=== PATIENT | male | born 1955 | race Caucasian/White ===

== ENCOUNTER 2018-03-21 11:13 | Inpatient (IN) | payer SELFPAY ==
[~2018-03-21] VITALS: Ht 170.2 cm; Wt 113.9 kg
[2018-03-21] MEDS ORDERED: KETOROLAC 30MG/ML VIAL IV STA (11:33)
[2018-03-21] MEDS ORDERED: ONDANSETRON HCL 4MG/2ML INJ IV STA (11:33)
[2018-03-21] MEDS ORDERED: ASPIRIN 81MG TABLET PO ONE (11:45)
[2018-03-21 12:42] LABS: HEMATOCRIT. 35.4 % (42.0-52.0); HEMOGLOBIN. 11.9 g/dL (14.0-18.0); MEAN CORPUSCULAR HEMOGLOBIN 29.2 pg (28.0-32.0); MEAN CORPUSCULAR VOLUME 86.9 fL (80.0-94.0); MEAN PLATELET VOLUME 8.8 fl (7.4-10.4); PLATELET 239 x1000/uL (130-400); RED BLOOD CELL COUNT 4.08 mill/uL (4.7-6.1); RED CELL DISTRIBUTION WIDTH 14.7 % (11.6-14.6)
[2018-03-21 12:46] LABS: CHLORIDE 98 mEq/L (98-107)
[2018-03-21] MEDS ORDERED: CEFTRIAXONE 1 G PREMIX 50 ML IV ONE (13:00)
[2018-03-21] MEDS ORDERED: SODIUM CHLORIDE 0.9% 1000ML BAG (SEPSIS BOLUS) IV ONE (13:00)
[2018-03-21 13:29] LABS: PLATELET ESTIMATE NORMAL
[2018-03-21] MEDS ORDERED: DOCUSATE SODIUM 100MG CAPSULE PO PRN (15:15)
[2018-03-21] MEDS ORDERED: DEXTROSE 50% WATER 50ML SYRINGE IV PRN (15:15)
[2018-03-21] MEDS ORDERED: GUAIFENESIN 200MG/10ML SUGAR FREE UDC PO PRN (15:15)
[2018-03-21] MEDS ORDERED: ACETAMINOPHEN 325MG TABLET PO PRN (15:15)
[2018-03-21] MEDS ORDERED: MAGNESIUM/ALUMINUM HYDROXIDE/SIMETHICONE 30ML UDC PO PRN (15:15)
[2018-03-21] MEDS ORDERED: ONDANSETRON HCL 4MG/2ML INJ IV PRN (15:15)
[2018-03-21] MEDS ORDERED: CLONIDINE 0.1MG TABLET PO PRN (15:15)
[2018-03-21] MEDS ORDERED: POTASSIUM CHLORIDE 20MEQ TABLET SR PO NR (15:15)
[2018-03-21] MEDS ORDERED: NITROGLYCERIN 0.4MG TABLET SL SL PRN (15:15)
[2018-03-21] MEDS ORDERED: IPRATROPIUM/ALBUTEROL 0.5-3(2.5)MG/3ML NEB INH PRN (15:15)
[2018-03-21] MEDS ORDERED: KETOROLAC 15MG/ML VIAL IV PRN (16:22)
[2018-03-21 19:30] VITALS: BP 120/88
[2018-03-21 19:57] LABS: TOTAL IRON BINDING CAPACITY 391 ug/dL (250-450)
[2018-03-21 20:00] VITALS: BP 117/77
[2018-03-21] MEDS: INSULIN LISPRO 100 UNITS/ML SUBCUT SCH ×2 (20:00→20:29)
[2018-03-21] MEDS: ENOXAPARIN 30MG/0.3ML SYR SUBCUT SCH (20:02)
[2018-03-21] MEDS: FUROSEMIDE 40MG/4ML VIAL IVP SCH (20:02)
[2018-03-21] MEDS: ASCORBIC ACID 500 MG TABLET PO SCH (20:03)
[2018-03-21] MEDS: BLOOD SUGAR DIAGNOSTIC STRIP TEST SCH ×2 (20:03→20:28)
[2018-03-21 20:14] LABS: FOLIC ACID (FOLATE) SERUM 10.5 ng/mL (>5.38)
[2018-03-21] MEDS: METOPROLOL TARTRATE 25MG TABLET PO SCH (20:27)
[2018-03-21] MEDS: FAMOTIDINE 20MG TABLET PO SCH (20:30)
[2018-03-21] MEDS: SPIRONOLACTONE 25MG TABLET PO SCH (20:31)
[2018-03-21] MEDS ORDERED: NA PHOS,M-B/NA PHOS,DI-BA ENEMA 118ML PR PRN (21:00)
[2018-03-21] MEDS ORDERED: AZITHROMYCIN 500 MG in DEXT 5% WATER 250 ML IV SCH (21:00)
[2018-03-21] MEDS ORDERED: ZOLPIDEM TARTRATE 5MG TABLET PO PRN (21:00)
[2018-03-21 23:27] LABS: CREATINE KINASE MB FRACTION 1.7 ng/mL (0.5-3.6)
[2018-03-22] VITALS (7 sets, daily range): BP systolic 103–130; BP diastolic 68–87
[2018-03-22] MEDS: BLOOD SUGAR DIAGNOSTIC STRIP TEST SCH ×4 (05:56→20:57)
[2018-03-22] MEDS: FUROSEMIDE 40MG/4ML VIAL IVP SCH ×3 (05:56→17:48)
[2018-03-22] MEDS: INSULIN LISPRO 100 UNITS/ML SUBCUT SCH ×4 (05:56→20:57)
[2018-03-22 08:40] LABS: CREATINE KINASE MB FRACTION 2.3 ng/mL (0.5-3.6)
[2018-03-22] MEDS ORDERED: CEFTRIAXONE 1 G PREMIX 50 ML IV SCH (09:00)
[2018-03-22] MEDS: ENOXAPARIN 30MG/0.3ML SYR SUBCUT SCH (09:11)
[2018-03-22] MEDS: METOPROLOL TARTRATE 25MG TABLET PO SCH ×2 (09:11→20:57)
[2018-03-22] MEDS: ASPIRIN 325MG EC TABLET PO SCH (09:12)
[2018-03-22] MEDS: FAMOTIDINE 20MG TABLET PO SCH ×2 (09:12→20:08)
[2018-03-22] MEDS: SPIRONOLACTONE 25MG TABLET PO SCH ×2 (09:12→20:08)
[2018-03-22] MEDS: ASCORBIC ACID 500 MG TABLET PO SCH ×2 (09:12→20:08)
[2018-03-22] MEDS: AZITHROMYCIN 500 MG in DEXT 5% WATER 250 ML IV SCH (20:25)
[2018-03-22] MEDS: ENOXAPARIN 120MG/0.8ML SYR SUBCUT SCH (21:03)
[2018-03-23 00:01] VITALS: BP 102/73
[2018-03-23 03:47] VITALS: BP 105/69
[2018-03-23 06:06] LABS: INR 1.1; PROTHROMBIN TIME 10.8 sec (9.1-11.1)
[2018-03-23] MEDS: BLOOD SUGAR DIAGNOSTIC STRIP TEST SCH ×4 (06:12→21:09)
[2018-03-23] MEDS: INSULIN LISPRO 100 UNITS/ML SUBCUT SCH ×4 (06:12→21:07)
[2018-03-23] MEDS: FUROSEMIDE 40MG/4ML VIAL IVP SCH ×2 (06:14→18:30)
[2018-03-23 08:00] VITALS: BP 122/72
[2018-03-23] MEDS: FAMOTIDINE 20MG TABLET PO SCH ×2 (09:37→21:08)
[2018-03-23] MEDS: ASCORBIC ACID 500 MG TABLET PO SCH ×2 (09:37→21:08)
[2018-03-23] MEDS: METOPROLOL TARTRATE 25MG TABLET PO SCH ×2 (09:38→21:08)
[2018-03-23] MEDS: ASPIRIN 325MG EC TABLET PO SCH (09:38)
[2018-03-23] MEDS: SPIRONOLACTONE 25MG TABLET PO SCH ×2 (09:38→21:08)
[2018-03-23] MEDS: ENOXAPARIN 120MG/0.8ML SYR SUBCUT SCH ×3 (09:39→21:08)
[2018-03-23] MEDS ORDERED: REGADENOSON 0.4 MG/5 ML IV ONE (10:45)
[2018-03-23 12:19] VITALS: BP 111/78
[2018-03-23 12:56] LABS: CREATINE KINASE MB FRACTION 1.4 ng/mL (0.5-3.6)
[2018-03-23 16:25] VITALS: BP 111/69
[2018-03-23 20:00] VITALS: BP 111/66
[2018-03-23] MEDS: AZITHROMYCIN 500 MG in DEXT 5% WATER 250 ML IV SCH (22:38)
[2018-03-24] VITALS: BP 102/71
[2018-03-24 04:00] VITALS: BP 115/73
[2018-03-24] MEDS: FUROSEMIDE 40MG/4ML VIAL IVP SCH (05:53)
[2018-03-24] MEDS: BLOOD SUGAR DIAGNOSTIC STRIP TEST SCH ×2 (06:00→12:33)
[2018-03-24] MEDS: INSULIN LISPRO 100 UNITS/ML SUBCUT SCH (06:01)
[2018-03-24 06:54] LABS: BASOPHILS % 0.7 % (0.0-2.0); EOSINOPHILS % 4.8 % (0.0-5.0); HEMATOCRIT. 38.1 % (42.0-52.0); HEMOGLOBIN. 12.6 g/dL (14.0-18.0); LYMPHOCYTES % 31.2 % (20.0-50.0); MEAN CORPUSCULAR VOLUME 87.7 fL (80.0-94.0); MEAN PLATELET VOLUME 8.5 fl (7.4-10.4); MONOCYTES % 9.9 % (2.0-8.0); NEUTROPHILS % 53.4 % (40.0-76.0); PLATELET 284 x1000/uL (130-400); RED BLOOD CELL COUNT 4.34 mill/uL (4.7-6.1); RED CELL DISTRIBUTION WIDTH 14.6 % (11.6-14.6)
[2018-03-24 07:19] LABS: CHLORIDE 101 mEq/L (98-107)
[2018-03-24 08:00] VITALS: BP 115/81
[2018-03-24] MEDS: FAMOTIDINE 20MG TABLET PO SCH (09:00)
[2018-03-24] MEDS: METOPROLOL TARTRATE 25MG TABLET PO SCH (09:00)
[2018-03-24] MEDS: SPIRONOLACTONE 25MG TABLET PO SCH (09:00)
[2018-03-24] MEDS: ASCORBIC ACID 500 MG TABLET PO SCH (09:00)
[2018-03-24] MEDS: ASPIRIN 325MG EC TABLET PO SCH (09:00)
[2018-03-24] MEDS: ENOXAPARIN 120MG/0.8ML SYR SUBCUT SCH (10:15)
[2018-03-24] MEDS: CEFTRIAXONE 1 G PREMIX 50 ML IV SCH (10:16)
[2018-03-24] MEDS ORDERED: REGADENOSON 0.4 MG/5 ML IV ONE (11:54)
[2018-03-24 12:00] VITALS: BP 130/87
[2018-03-24 16:00] VITALS: BP 129/88
[2018-03-25] MEDS ORDERED: AZITHROMYCIN 500 MG TABLET PO SCH (20:00)
== END 2018-03-24 16:15 | disposition home or self-care (01) | DRG 720 ==
LOC: ER 11:13 → EDBD 15:16 → 8WST 15:16 → EDBEDREQ 15:19 → ENRESERV 17:40
PROVIDERS: ADMIT Internal Medicine; ATTEND Internal Medicine
DX: A41.9 Sepsis, unspecified organism (principal); I21.4 Non-ST elevation (NSTEMI) myocardial infarction; I42.9 Cardiomyopathy, unspecified; I11.0 Hypertensive heart disease with heart failure; J18.9 Pneumonia, unspecified organism; I50.40 Unspecified combined systolic (congestive) and diastolic (congestive) heart failure; E44.1 Mild protein-calorie malnutrition; E83.51 Hypocalcemia; E11.9 Type 2 diabetes mellitus without complications; E87.1 Hypo-osmolality and hyponatremia; E87.6 Hypokalemia; D63.8 Anemia in other chronic diseases classified elsewhere; I25.10 Atherosclerotic heart disease of native coronary artery without angina pectoris; I25.2 Old myocardial infarction; Z79.4 Long term (current) use of insulin; Z87.891 Personal history of nicotine dependence; Z68.39 Body mass index [BMI] 39.0-39.9, adult
CPT/HCPCS: 36415; 71045; 78452; 80048; 80061; 82550; 82553; 82607; 82746; 82962; 83036; 83540; 83550; 83605; 83880; 84484; 87804; 93005; 93017; 93306; 93970; 96374; 96375; 99285; A9500; C1893; J0456; J0696; J1650; J1815; J1885; J1940; J2405; J2785; J7050; J7060

== ENCOUNTER 2019-11-23 18:22 | Inpatient (IN) | payer MEDICAID ==
[~2019-11-23] VITALS: Ht 170.2 cm; Wt 104.0 kg
[2019-11-23] MEDS ORDERED: ASPIRIN 81MG TABLET PO ONE (19:00)
[2019-11-23] MEDS ORDERED: NITROGLYCERIN 0.4MG TABLET SL SL PRN (19:00)
[2019-11-23 20:02] LABS: BASOPHILS % 1.2 % (0.0-2.0); HEMATOCRIT. 30.4 % (42.0-52.0); HEMOGLOBIN. 9.6 g/dL (14.0-18.0); LYMPHOCYTES % 25.5 % (20.0-50.0); MEAN CORPUSCULAR HEMOGLOBIN 23.4 pg (28.0-32.0); MEAN CORPUSCULAR VOLUME 73.7 fL (80.0-94.0); MEAN PLATELET VOLUME 6.9 fl (7.4-10.4); MONOCYTES % 10.4 % (2.0-8.0); NEUTROPHILS % 61.9 % (40.0-76.0); PLATELET 360 x1000/uL (130-400); RED BLOOD CELL COUNT 4.12 mill/uL (4.7-6.1); RED CELL DISTRIBUTION WIDTH 18.6 % (11.6-14.6)
[2019-11-23 20:12] LABS: CHLORIDE 105 mEq/L (98-107)
[2019-11-23 20:16] LABS: ETHANOL BLOOD 173 mg/dL
[2019-11-23 20:55] LABS: *AMPHETAMINES SCREEN URINE NEGATIVE (NEGATIVE); *BARBITURATES SCREEN URINE NEGATIVE (NEGATIVE); *COCAINE SCREEN URINE NEGATIVE (NEGATIVE); CANNABINOID URINE SCREEN NEGATIVE (NEGATIVE); PHENCYCLIDINE URINE SCREEN NEGATIVE (NEGATIVE)
[2019-11-23 20:56] LABS: *BENZODIAZEPINES SCREEN URINE PRESUMTIVE POSITIVE (NEGATIVE); METHADONE URINE SCREEN NEGATIVE (NEGATIVE); OPIATES URINE SCREEN NEGATIVE (NEGATIVE)
[2019-11-23] MEDS ORDERED: CHLORDIAZEPOXIDE 25MG CAPSULE PO ONE (22:00)
[2019-11-24] VITALS (13 sets, daily range): BP systolic 113–182; BP diastolic 47–112
[2019-11-24] MEDS ORDERED: ATOR10TA69 MT (02:04)
[2019-11-24] MEDS ORDERED: CARV6.2548 MT (02:04)
[2019-11-24] MEDS ORDERED: LISI2.5T47 MT (02:04)
[2019-11-24] MEDS ORDERED: ASPI-1497 MT (02:04)
[2019-11-24] MEDS ORDERED: LORAZEPAM 2MG/ML CPJ IV PRN (08:00)
[2019-11-24] MEDS ORDERED: CARVEDILOL 12.5MG TABLET PO SCH (09:00)
[2019-11-24] MEDS ORDERED: METOPROLOL TARTRATE 50MG TABLET PO SCH (09:00)
[2019-11-24] MEDS ORDERED: ASPIRIN 325MG EC TABLET PO SCH (09:00)
[2019-11-24] MEDS ORDERED: FUROSEMIDE 40MG/4ML VIAL IVP NR (09:15)
[2019-11-24] MEDS: FOLIC ACID/VITAMIN B COMP W-C TABLET PO SCH (10:34)
[2019-11-24] MEDS: MULTIVITAMINS,THER W-MINERALS TABLET PO SCH (10:34)
[2019-11-24] MEDS: THIAMINE HCL 100MG TABLET PO SCH (10:34)
[2019-11-24] MEDS: HYDROCODONE/ACETAMINOPHEN 5/325MG TABLET PO PRN (10:34)
[2019-11-24] MEDS: LOSARTAN POTASSIUM 50 MG TABLET PO SCH (10:35)
[2019-11-24] MEDS: FAMOTIDINE 20MG/2ML VIAL IV SCH ×2 (10:36→18:43)
[2019-11-24] MEDS: ENOXAPARIN 120MG/0.8ML SYR SUBCUT SCH ×2 (11:52→20:09)
[2019-11-24] MEDS: CHLORDIAZEPOXIDE 25MG CAPSULE PO SCH ×2 (14:03→20:53)
[2019-11-24] MEDS: FUROSEMIDE 40MG/4ML VIAL IVP SCH (18:42)
[2019-11-24] MEDS: CARVEDILOL 12.5MG TABLET PO SCH (20:09)
[2019-11-25] VITALS (11 sets, daily range): BP systolic 101–141; BP diastolic 60–85
[2019-11-25] MEDS: CHLORDIAZEPOXIDE 25MG CAPSULE PO SCH ×3 (05:58→21:04)
[2019-11-25 06:43] LABS: BASOPHILS % 0.9 % (0.0-2.0); EOSINOPHILS % 6.1 % (0.0-5.0); HEMATOCRIT. 31.2 % (42.0-52.0); HEMOGLOBIN. 9.8 g/dL (14.0-18.0); LYMPHOCYTES % 30.2 % (20.0-50.0); MEAN CORPUSCULAR HEMOGLOBIN 22.9 pg (28.0-32.0); MEAN CORPUSCULAR VOLUME 72.9 fL (80.0-94.0); MEAN PLATELET VOLUME 7.3 fl (7.4-10.4); MONOCYTES % 8.5 % (2.0-8.0); NEUTROPHILS % 54.3 % (40.0-76.0); PLATELET 301 x1000/uL (130-400); RED BLOOD CELL COUNT 4.28 mill/uL (4.7-6.1); RED CELL DISTRIBUTION WIDTH 18.6 % (11.6-14.6)
[2019-11-25 06:45] LABS: PROTHROMBIN TIME 10.9 sec (9.6-11.0)
[2019-11-25 07:15] LABS: CHLORIDE 98 mEq/L (98-107)
[2019-11-25] MEDS: LOSARTAN POTASSIUM 50 MG TABLET PO SCH (08:36)
[2019-11-25] MEDS: FUROSEMIDE 40MG/4ML VIAL IVP SCH ×2 (08:36→16:28)
[2019-11-25] MEDS: FAMOTIDINE 20MG/2ML VIAL IV SCH ×2 (08:36→16:28)
[2019-11-25] MEDS: MULTIVITAMINS,THER W-MINERALS TABLET PO SCH (08:36)
[2019-11-25] MEDS: ENOXAPARIN 120MG/0.8ML SYR SUBCUT SCH ×2 (08:37→21:03)
[2019-11-25] MEDS: POTASSIUM CHLORIDE 20MEQ TABLET SR PO SCH (08:37)
[2019-11-25] MEDS: FOLIC ACID/VITAMIN B COMP W-C TABLET PO SCH (08:37)
[2019-11-25] MEDS: THIAMINE HCL 100MG TABLET PO SCH (08:37)
[2019-11-25] MEDS: CARVEDILOL 12.5MG TABLET PO SCH ×2 (08:38→21:04)
[2019-11-25] MEDS ORDERED: POTASSIUM CHLORIDE 20MEQ TABLET SR PO NR (11:30)
[2019-11-25] MEDS: HYDROCODONE/ACETAMINOPHEN 5/325MG TABLET PO PRN (12:04)
[2019-11-26] VITALS (13 sets, daily range): BP systolic 92–136; BP diastolic 46–80
[2019-11-26] MEDS: CHLORDIAZEPOXIDE 25MG CAPSULE PO SCH ×3 (05:24→22:44)
[2019-11-26 06:41] LABS: BASOPHILS % 0.7 % (0.0-2.0); EOSINOPHILS % 5.2 % (0.0-5.0); HEMOGLOBIN. 9.7 g/dL (14.0-18.0); MEAN CORPUSCULAR HEMOGLOBIN 22.8 pg (28.0-32.0); MEAN CORPUSCULAR VOLUME 72.6 fL (80.0-94.0); MEAN PLATELET VOLUME 7.5 fl (7.4-10.4); MONOCYTES % 9.1 % (2.0-8.0); PLATELET 296 x1000/uL (130-400); RED BLOOD CELL COUNT 4.27 mill/uL (4.7-6.1)
[2019-11-26 07:44] LABS: CHLORIDE 100 mEq/L (98-107)
[2019-11-26] MEDS: CARVEDILOL 12.5MG TABLET PO SCH ×2 (08:27→20:00)
[2019-11-26] MEDS: FOLIC ACID/VITAMIN B COMP W-C TABLET PO SCH (08:27)
[2019-11-26] MEDS: LOSARTAN POTASSIUM 50 MG TABLET PO SCH (08:27)
[2019-11-26] MEDS: THIAMINE HCL 100MG TABLET PO SCH (08:27)
[2019-11-26] MEDS: POTASSIUM CHLORIDE 20MEQ TABLET SR PO SCH (08:27)
[2019-11-26] MEDS: MULTIVITAMINS,THER W-MINERALS TABLET PO SCH (08:27)
[2019-11-26] MEDS: ENOXAPARIN 120MG/0.8ML SYR SUBCUT SCH ×2 (08:28→20:00)
[2019-11-26] MEDS: FUROSEMIDE 40MG/4ML VIAL IVP SCH ×2 (08:28→17:11)
[2019-11-26] MEDS: FAMOTIDINE 20MG/2ML VIAL IV SCH ×2 (08:28→17:35)
[2019-11-26] MEDS: HYDROCODONE/ACETAMINOPHEN 5/325MG TABLET PO PRN (11:11)
[2019-11-26] MEDS ORDERED: POTASSIUM CHLORIDE 20MEQ TABLET SR PO NR (12:00)
[2019-11-27] VITALS (12 sets, daily range): BP systolic 90–127; BP diastolic 45–80
[2019-11-27] MEDS: CHLORDIAZEPOXIDE 25MG CAPSULE PO SCH ×3 (06:28→21:13)
[2019-11-27 07:04] LABS: CHLORIDE 102 mEq/L (98-107)
[2019-11-27] MEDS: FUROSEMIDE 40MG/4ML VIAL IVP SCH (10:24)
[2019-11-27] MEDS: FOLIC ACID/VITAMIN B COMP W-C TABLET PO SCH (10:24)
[2019-11-27] MEDS: ENOXAPARIN 120MG/0.8ML SYR SUBCUT SCH ×2 (10:24→21:13)
[2019-11-27] MEDS: FAMOTIDINE 20MG/2ML VIAL IV SCH ×2 (10:24→17:30)
[2019-11-27] MEDS: THIAMINE HCL 100MG TABLET PO SCH (10:25)
[2019-11-27] MEDS: CARVEDILOL 12.5MG TABLET PO SCH ×2 (10:25→21:00)
[2019-11-27] MEDS: MULTIVITAMINS,THER W-MINERALS TABLET PO SCH (10:25)
[2019-11-27] MEDS: POTASSIUM CHLORIDE 20MEQ TABLET SR PO SCH ×2 (10:25→17:30)
[2019-11-27] MEDS: LOSARTAN POTASSIUM 50 MG TABLET PO SCH (10:25)
[2019-11-27] MEDS: HYDROCODONE/ACETAMINOPHEN 5/325MG TABLET PO PRN (13:05)
[2019-11-27] MEDS: FUROSEMIDE 100MG/10ML VIAL IVP SCH (17:31)
[2019-11-28] VITALS (12 sets, daily range): BP systolic 93–115; BP diastolic 46–70
[2019-11-28] MEDS: FUROSEMIDE 100MG/10ML VIAL IVP SCH ×2 (01:14→08:21)
[2019-11-28] MEDS: CHLORDIAZEPOXIDE 25MG CAPSULE PO SCH ×3 (05:21→20:50)
[2019-11-28 06:08] LABS: BASOPHILS % 0.7 % (0.0-2.0); EOSINOPHILS % 5.6 % (0.0-5.0); HEMATOCRIT. 32.5 % (42.0-52.0); LYMPHOCYTES % 32.8 % (20.0-50.0); MEAN CORPUSCULAR HEMOGLOBIN 22.9 pg (28.0-32.0); MEAN CORPUSCULAR VOLUME 74.6 fL (80.0-94.0); MEAN PLATELET VOLUME 7.3 fl (7.4-10.4); MONOCYTES % 12.7 % (2.0-8.0); NEUTROPHILS % 48.2 % (40.0-76.0); PLATELET 272 x1000/uL (130-400); RED BLOOD CELL COUNT 4.36 mill/uL (4.7-6.1); RED CELL DISTRIBUTION WIDTH 18.3 % (11.6-14.6)
[2019-11-28] MEDS: FAMOTIDINE 20MG/2ML VIAL IV SCH ×2 (08:20→17:17)
[2019-11-28] MEDS: THIAMINE HCL 100MG TABLET PO SCH (08:20)
[2019-11-28] MEDS: FOLIC ACID/VITAMIN B COMP W-C TABLET PO SCH (08:21)
[2019-11-28] MEDS: MULTIVITAMINS,THER W-MINERALS TABLET PO SCH (08:21)
[2019-11-28] MEDS: ENOXAPARIN 120MG/0.8ML SYR SUBCUT SCH ×2 (08:21→20:50)
[2019-11-28] MEDS: POTASSIUM CHLORIDE 20MEQ TABLET SR PO SCH ×2 (08:21→17:17)
[2019-11-28] MEDS: LOSARTAN POTASSIUM 50 MG TABLET PO SCH (08:21)
[2019-11-28] MEDS: CARVEDILOL 12.5MG TABLET PO SCH ×2 (08:22→20:51)
[2019-11-28 10:39] LABS: CHLORIDE 101 mEq/L (98-107)
[2019-11-28] MEDS: FUROSEMIDE 40MG TABLET PO SCH (17:18)
[2019-11-28] MEDS: HYDROCODONE/ACETAMINOPHEN 5/325MG TABLET PO PRN (22:47)
[2019-11-29 00:01] VITALS: BP 115/72
[2019-11-29 02:02] VITALS: BP 119/75
[2019-11-29 03:13] VITALS: BP 122/68
[2019-11-29 04:01] VITALS: BP 94/49
[2019-11-29 05:56] VITALS: BP 122/68
[2019-11-29] MEDS: CHLORDIAZEPOXIDE 25MG CAPSULE PO SCH (06:30)
[2019-11-29] MEDS: FUROSEMIDE 40MG TABLET PO SCH (06:30)
[2019-11-29 08:00] VITALS: BP 108/61
== END 2019-11-29 08:50 | disposition home health service (06) | DRG 203 ==
LOC: ER 18:22 → 3WST 21:51 → EDBEDREQTM 21:55 → EDBEDREQ 21:55 → ENRESERV 22:28
PROVIDERS: ADMIT Internal Medicine; ATTEND Internal Medicine
DX: M94.0 Chondrocostal junction syndrome [Tietze] (principal); I11.0 Hypertensive heart disease with heart failure; I50.23 Acute on chronic systolic (congestive) heart failure; E44.1 Mild protein-calorie malnutrition; D64.9 Anemia, unspecified; E11.9 Type 2 diabetes mellitus without complications; F10.129 Alcohol abuse with intoxication, unspecified; E78.5 Hyperlipidemia, unspecified; E87.6 Hypokalemia; G47.33 Obstructive sleep apnea (adult) (pediatric); I42.0 Dilated cardiomyopathy; I49.3 Ventricular premature depolarization; E66.09 Other obesity due to excess calories; Y90.9 Presence of alcohol in blood, level not specified; I87.2 Venous insufficiency (chronic) (peripheral); I87.8 Other specified disorders of veins; Z95.810 Presence of automatic (implantable) cardiac defibrillator; Z79.82 Long term (current) use of aspirin; Z79.899 Other long term (current) drug therapy; Z68.35 Body mass index [BMI] 35.0-35.9, adult; Z82.49 Family history of ischemic heart disease and other diseases of the circulatory system; Z82.3 Family history of stroke; Z59.0 Homelessness
CPT/HCPCS: 36415; 71045; 74018; 76705; 80048; 80053; 80305; 80320; 82962; 83880; 84484; 85025; 93005; 93306; 99291; J1650; J1940; J3490; G0480